=== PATIENT | female | born 1960 | race Caucasian/White ===

== ENCOUNTER 2018-09-21 09:05 | Emergency (ER) | payer OTHER ==
[2018-09-21 10:12] LABS: ANION GAP 16.1
--- NOTE | 2018-09-21 10:23 | CT ---
Clinical history: 58-year-old female emergency department with right facial drooping and "swelling". No known trauma. Nonsmoker. Scan technique: Volume acquisition of data emergency unenhanced CT scan of the head and brain obtained while the patient was lying supine on the Siemens multi slice scanner [place], [place]. All data archived in the PACS system for storage, reformatting axial/sagittal/coronal planes and study. Interpretation: 1. Symmetric pittman-white matter pattern and underlying mirror-image normal ventricular system. No hydrocephalus. 2. No supratentorial or posterior fossa mass lesion. 3. No focal area of ischemic infarct or signs of encephalomalacia. 4. No sign of acute intracerebral/intraventricular/subarachnoid bleed. 5. Uniformly thick bony calvarium. No pathologic skeletal lesion, skull fracture, underlying brain contusion and no evidence of extracerebral/intracranial epidural or subdural hematoma. 6. Symmetric clear pneumatization of the paranasal and mastoid sinuses. Conclusion: Negative emergency unenhanced CT scan head.
--- NOTE | 2018-09-21 11:13 | EDM.PDOC ---
ED HPI GENERAL MEDICAL PROBLEM - General Chief Complaint: Skin Complaint Stated Complaint: FACE SWLLEN,FACE IS DROPPED Time Seen by Provider: 09/21/18 09:20 Source of Information: Reports: Patient, RN, RN Notes Reviewed History Limitations: Reports: No Limitations - History of Present Illness INITIAL COMMENTS - FREE TEXT/NARRATIVE: Patient presents to ER with complaint of swelling to the right cheek. States she noticed it when she awoke this morning at 0630. States she started new medication-amitriptyline on Friday. No weakness. No speech or visual disturbance. States she feels "wobbly". Denies headache. Denies fever, chills, nausea, vomiting, diarrhea, chest pain, shortness of breath, swelling of the tongue, difficulty swallowing and dental problems. Onset: Today Duration: Getting Worse Location: Reports: Other (right cheek) Quality: Reports: Ache Severity: Moderate Improves with: Reports: None Worsens with: Reports: None Associated Symptoms: Reports: No Other Symptoms - Related Data Allergies Allergy/AdvReac Type Severity Reaction Status Date / Time morphine Allergy Itching Verified 09/21/18 09:24 Home Meds: Home Meds Amitriptyline [Elavil] 10 mg PO BEDTIME 09/21/18 [History] ClonazePAM [KlonoPIN] 0.5 mg PO ASDIRECTED PRN 09/21/18 [History] Zolpidem [Ambien] 10 mg PO BEDTIME 09/21/18 [History] buPROPion [Wellbutrin] 100 mg PO BID 09/21/18 [History] Past Medical History HEENT History: Reports: Impaired Vision Other HEENT History: wears glasses Cardiovascular History: Reports: None Respiratory History: Reports: None Genitourinary History: Reports: None 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 Other LUMBER CHAIN OFFBEARER History: oviarin cysts Musculoskeletal History: Reports: Fibromyalgia Neurological History: Reports: None Psychiatric History: Reports: Anxiety, Depression Endocrine/Metabolic History: Reports: None Hematologic History: Reports: None Immunologic History: Reports: None Oncologic (Cancer) History: Reports: None Dermatologic History: Reports: None - Infectious Disease History Infectious Disease History: Reports: Measles, Mumps - Past Surgical History Head Surgeries/Procedures: Reports: None GI Surgical History: Reports: Cholecystectomy Female Surgical History: Reports: Hysterectomy Other Female Surgeries/Procedures: breast augmentation Social & Family History - Tobacco Use Smoking Status *Q: Former Smoker Years of Tobacco use: 25 Packs/Tins Daily: 1 Used Tobacco, but Quit: Yes Month/Year Tobacco Last Used: may Second Hand Smoke Exposure: No - Caffeine Use Caffeine Use: Reports: Soda, Tea - Recreational Drug Use Recreational Drug Use: No ED ROS GENERAL - Review of Systems Review Of Systems: ROS reveals no pertinent complaints other than HPI. ED EXAM, SKIN/RASH Exam: See Below Exam Limited By: No Limitations General Appearance: Mild Distress Eye Exam: Bilateral Eye: EOMI, Normal Inspection, PERRL Ears: Normal External Exam, Normal Canal, Hearing Grossly Normal, Normal TMs Nose: Normal Inspection, Normal Mucosa, No Blood Throat/Mouth: Normal Inspection, Normal Lips, Normal Teeth, Normal Gums, Normal Oropharynx, Normal Voice, No Airway Compromise Head: Facial Swelling (sided) Neck: Normal Inspection, Supple, Non-Tender, Full Range of Motion Respiratory/Chest: No Respiratory Distress, Lungs Clear, Normal Breath Sounds, No Accessory Muscle Use, Chest Non-Tender Cardiovascular: Normal Peripheral Pulses, Regular Rate, Rhythm, No Edema, No Gallop, No JVD, No Murmur, No Rub Back Exam: Normal Inspection, Full Range of Motion, NT Extremities: Normal Inspection, Normal Range of Motion, Non-Tender, No Pedal Edema, Normal Capillary Refill Neurological: Alert, Oriented, CN II-XII Intact, Normal Cognition, Normal Gait, Normal Reflexes, No Motor/Sensory Deficits Psychiatric: Anxious Skin: Other (swelling right cheek, lower jaw warm, minimal erythema. ) Lymphatic: No Adenopathy Course - Vital Signs Last Recorded V/S: Last Vital Signs Temp 97.4 F 09/21/18 09:17 Pulse 85 09/21/18 09:17 Resp 16 09/21/18 09:17 BP 132/84 09/21/18 09:33 Pulse Ox 98 09/21/18 09:17 - Orders/Labs/Meds Labs: Laboratory Tests 09/21/18 09/21/18 09/21/18 Range/Units 09:44 09:44 09:44 WBC 10.2 H (5.0-10.0) 10^3/uL RBC 4.71 (4.2-5.4) 10^6/uL Hgb 13.8 (12.0-16.0) g/dL Hct 40.5 (37.0-47.0) % MCV 86.0 (80-100) fL MCH 29.3 (27.0-34.0) pg MCHC 34.1 (33.0-35.0) g/dL Plt Count 347 (150-450) 10^3/uL Neut % (Auto) 77.3 H (42.2-75.2) % Lymph % (Auto) 17.0 L (20.5-50.1) % [place] % (Auto) 4.6 (2-8) % Eos % (Auto) 0.9 L (1.0-3.0) % Baso % (Auto) 0.2 (0.0-1.0) % ESR 16 (0-20) mm/hr Sodium 135 (135-145) mmol/L Potassium 4.1 (3.6-5.0) mmol/L Chloride 101 (101-111) mmol/L Carbon Dioxide 22.0 (21.0-31.0) mmol/L Anion Gap 16.1 BUN 11 (7-18) mg/dL Creatinine 1.0 (0.6-1.3) mg/dL Est Cr Clr Drug Dosing 55.85 mL/min Estimated GFR (MDRD) 57 BUN/Creatinine Ratio 11.00 Glucose 98 (74-105) mg/dL Calcium 8.8 (8.4-10.2) mg/dl Total Bilirubin 1.0 (0.2-1.0) mg/dL AST 26 (10-42) IU/L ALT 18 (10-60) IU/L Alkaline Phosphatase 77 (42-121) IU/L C-Reactive Protein (0.0-1.3) mg/dL Total Protein 7.8 (6.7-8.2) g/dl Albumin 4.1 (3.2-5.5) g/dl Globulin 3.7 Albumin/Globulin Ratio 1.11 09/21/18 Range/Units 09:44 WBC (5.0-10.0) 10^3/uL RBC (4.2-5.4) 10^6/uL Hgb (12.0-16.0) g/dL Hct (37.0-47.0) % MCV (80-100) fL MCH (27.0-34.0) pg MCHC (33.0-35.0) g/dL Plt Count (150-450) 10^3/uL Neut % (Auto) (42.2-75.2) % Lymph % (Auto) (20.5-50.1) % [place] % (Auto) (2-8) % Eos % (Auto) (1.0-3.0) % Baso % (Auto) (0.0-1.0) % ESR (0-20) mm/hr Sodium (135-145) mmol/L Potassium (3.6-5.0) mmol/L Chloride (101-111) mmol/L Carbon Dioxide (21.0-31.0) mmol/L Anion Gap BUN (7-18) mg/dL Creatinine (0.6-1.3) mg/dL Est Cr Clr Drug Dosing mL/min Estimated GFR (MDRD) BUN/Creatinine Ratio Glucose (74-105) mg/dL Calcium (8.4-10.2) mg/dl Total Bilirubin (0.2-1.0) mg/dL AST (10-42) IU/L ALT (10-60) IU/L Alkaline Phosphatase (42-121) IU/L C-Reactive Protein 2.6 H (0.0-1.3) mg/dL Total Protein (6.7-8.2) g/dl Albumin (3.2-5.5) g/dl Globulin Albumin/Globulin Ratio - Radiology Interpretation Free Text/Narrative:: Head CT: No acute findings See rad report - Re-Assessments/Exams Free Text/Narrative Re-Assessment/Exam: 09/21/18 16:07 Denies dental problems. Admits to some tenderness to right lower jaw. States she has had C-diff in the past and does not really want antibiotics. She was instructed to call the ER if she has further problems and an antibiotic will be prescribed. 09/22/18 08:39 NIH score 0 Departure - Departure Time of Disposition: 11:11 Disposition: Home, Self-Care 01 Condition: Fair Clinical Impression: Facial swelling - Discharge Information *PRESCRIPTION DRUG MONITORING PROGRAM REVIEWED*: No *COPY OF PRESCRIPTION DRUG MONITORING REPORT IN PATIENT DESIREE: No Instructions: Julien Palsy, Adult, Dental Abscess, [id number], Drug Allergy, Lene-yl-Avis Referrals: Stephen Lobo NP [Primary Care Provider] - Forms: ED Department Discharge Additional Instructions: Follow up with your primary care facility Return to the ER with any worsening of symptoms RX: PRednisone
== END 2018-09-21 11:34 | disposition home or self-care (01) ==
LOC: DL.ED 09:05
DX: R22.0 Localized swelling, mass and lump, head (principal); F41.9 Anxiety disorder, unspecified; F32.9 Major depressive disorder, single episode, unspecified; Z87.891 Personal history of nicotine dependence; Z79.899 Other long term (current) drug therapy; Z88.5 Allergy status to narcotic agent
CPT/HCPCS: 36415; 70450; 80053; 85025; 85651; 86140; 99284-25

== ENCOUNTER 2018-10-18 16:13 | Emergency (ER) | payer OTHER ==
[2018-10-18] MEDS ORDERED: Ketorolac 30 MG/ML SDV IM ONE (17:00)
[2018-10-18 17:43] LABS: ANION GAP 13.8
[2018-10-18] MEDS ORDERED: predniSONE 20 MG Tab PO ONE (17:55)
--- NOTE | 2018-10-18 18:15 | EDM.PDOC ---
Scribed by lAma Romo 10/18/18 [id number] for Cary Ospina NP ED HPI GENERAL MEDICAL PROBLEM - General Chief Complaint: Neurological Problem Time Seen by Provider: 10/18/18 16:45 Source of Information: Reports: Patient, RN, RN Notes Reviewed History Limitations: Reports: No Limitations - History of Present Illness INITIAL COMMENTS - FREE TEXT/NARRATIVE: Patient presents to ER with complaint of right facial swelling and drooping that began last night. Similar episode approximately 6 weeks ago. This resolved with steroids and rest after 3 days. States history of RA but "juiced and rid her of RA". She has a history of fibromyalgia. She has tenderness to right rastafari, ache to right neck, right shoulder, and back (states it feels like a fare up of fibromyalgia). No blurred vision, headache, fever or chills. Onset Date: 10/17/18 Duration: Getting Worse Location: Reports: Generalized Quality: Reports: Ache Severity: Mild Improves with: Reports: None Worsens with: Reports: None Associated Symptoms: Reports: No Other Symptoms Back Pain Score (Numeric/FACES): 6 - Related Data Allergies Allergy/AdvReac Type Severity Reaction Status Date / Time morphine Allergy Itching Verified 10/18/18 16:44 Home Meds: Home Meds Amitriptyline [Elavil] 10 mg PO BEDTIME 09/21/18 [History] ClonazePAM [KlonoPIN] 0.5 mg PO ASDIRECTED PRN 09/21/18 [History] Zolpidem [Ambien] 10 mg PO BEDTIME 09/21/18 [History] buPROPion [Wellbutrin] 100 mg PO BID 09/21/18 [History] Past Medical History HEENT History: Reports: Impaired Vision Other HEENT History: wears glasses Cardiovascular History: Reports: None Respiratory History: Reports: None Genitourinary History: Reports: None 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 Other SOLAR INSTALLATION MANAGER History: oviarin cysts Musculoskeletal History: Reports: Fibromyalgia Neurological History: Reports: None Psychiatric History: Reports: Anxiety, Depression Endocrine/Metabolic History: Reports: None Hematologic History: Reports: None Immunologic History: Reports: None Oncologic (Cancer) History: Reports: None Dermatologic History: Reports: None - Infectious Disease History Infectious Disease History: Reports: Measles, Mumps - Past Surgical History Head Surgeries/Procedures: Reports: None GI Surgical History: Reports: Cholecystectomy Female Surgical History: Reports: Hysterectomy, Other (See Below) Other Female Surgeries/Procedures: breast augmentation, ovarian cyst removal. Social & Family History - Family History Family Medical History: Noncontributory - Tobacco Use Smoking Status *Q: Never Smoker Second Hand Smoke Exposure: No - Caffeine Use Caffeine Use: Reports: Soda - Recreational Drug Use Recreational Drug Use: No ED ROS GENERAL - Review of Systems Review Of Systems: ROS reveals no pertinent complaints other than HPI. ED EXAM, NEURO - Physical Exam Exam: See Below Exam Limited By: No Limitations General Appearance: Mild Distress Eye Exam: Bilateral Eye: EOMI, Normal Inspection, PERRL Ears: Normal External Exam, Normal Canal, Hearing Grossly Normal, Normal TMs Nose: Normal Inspection, Normal Mucosa, No Blood Head Exam: Facial Swelling (right. Right mandible tenderness and right rastafari) Neck: Tender Lateral Respiratory/Chest: No Respiratory Distress, Lungs Clear, Normal Breath Sounds, No Accessory Muscle Use, Chest Non-Tender Cardiovascular: Normal Peripheral Pulses, Regular Rate, Rhythm, No Edema, No Gallop, No JVD, No Murmur, No Rub GI/Abdominal: Normal Bowel Sounds, Soft, Non-Tender, No Organomegaly, No Distention, No Abnormal Bruit, No Mass (Female) Exam: Deferred Rectal (Female) Exam: Deferred Neurological: Alert, Normal Mood/Affect, Normal Dorsiflexion, CN II-XII Intact, Normal Plantar Flexion, Normal Gait, Normal Reflexes, No Motor/Sensory Deficits , Oriented x 3 Back Exam: Normal Inspection, Full Range of Motion, NT Extremities: Normal Inspection, Normal Range of Motion, Non-Tender, No Pedal Edema, Normal Capillary Refill Psychiatric: Normal Affect, Normal Mood Skin Exam: Warm, Dry, Intact, Normal Color, No Rash Course - Vital Signs Last Recorded V/S: Last Vital Signs Temp 98.1 F 10/18/18 16:44 Pulse 75 10/18/18 16:44 Resp 16 10/18/18 16:44 BP 134/82 10/18/18 16:44 Pulse Ox 96 10/18/18 16:44 - Orders/Labs/Meds Orders: Active Orders 24 hr Category Date Time Status CBC WITH AUTO DIFF [HEME] Stat Lab 10/18/18 17:10 Results SEDIMENTATION RATE MANUAL [HEME] Stat Lab 10/18/18 17:10 Results predniSONE Med 10/18/18 17:55 Once 40 mg PO ONETIME ONE Medication Orders Prednisone (Prednisone) 40 mg PO ONETIME ONE Stop: 10/18/18 17:56 Labs: Laboratory Tests 10/18/18 10/18/18 10/18/18 Range/Units 17:10 17:10 17:10 WBC 6.3 (5.0-10.0) 10^3/uL RBC 4.32 (4.2-5.4) 10^6/uL Hgb 12.7 (12.0-16.0) g/dL Hct 37.6 (37.0-47.0) % MCV 87.0 (80-100) fL MCH 29.4 (27.0-34.0) pg MCHC 33.8 (33.0-35.0) g/dL Plt Count 347 (150-450) 10^3/uL Neut % (Auto) 56.8 (42.2-75.2) % Lymph % (Auto) 31.7 (20.5-50.1) % [place] % (Auto) 7.5 (2-8) % Eos % (Auto) 3.5 H (1.0-3.0) % Baso % (Auto) 0.5 (0.0-1.0) % Sodium 139 (135-145) mmol/L Potassium 3.8 (3.6-5.0) mmol/L Chloride 106 (101-111) mmol/L Carbon Dioxide 23.0 (21.0-31.0) mmol/L Anion Gap 13.8 BUN 14 (7-18) mg/dL Creatinine 1.0 (0.6-1.3) mg/dL Est Cr Clr Drug Dosing 55.85 mL/min Estimated GFR (MDRD) 57 BUN/Creatinine Ratio 14.00 Glucose 92 (74-105) mg/dL Calcium 8.6 (8.4-10.2) mg/dl Total Bilirubin 0.7 (0.2-1.0) mg/dL AST 19 (10-42) IU/L ALT 15 (10-60) IU/L Alkaline Phosphatase 75 (42-121) IU/L C-Reactive Protein 1.4 H (0.0-1.3) mg/dL Total Protein 7.0 (6.7-8.2) g/dl Albumin 3.7 (3.2-5.5) g/dl Globulin 3.3 Albumin/Globulin Ratio 1.12 Meds: Medications Generic Name Dose Route Start Last Admin Trade Name Freq PRN Reason Stop Dose Admin Prednisone 40 mg 10/18/18 17:55 Prednisone PO 10/18/18 17:56 ONETIME ONE Discontinued Medications Generic Name Dose Route Start Last Admin Trade Name Freq PRN Reason Stop Dose Admin Ketorolac Tromethamine 30 mg 10/18/18 17:00 10/18/18 17:15 Toradol IM 10/18/18 17:01 30 mg ONETIME ONE Administration Departure - Departure Time of Disposition: 17:58 Disposition: Home, Self-Care 01 Condition: Fair Clinical Impression: Swelling of right side of face - Discharge Information *PRESCRIPTION DRUG MONITORING PROGRAM REVIEWED*: No *COPY OF PRESCRIPTION DRUG MONITORING REPORT IN PATIENT DESIREE: No Forms: ED Department Discharge Additional Instructions: RX: Prednisone Make an appointment tomorrow to see Stephen Lobo for further workup Return to the ER with any worsening of symptoms - My Orders Last 24 Hours: My Active Orders 10/18/18 17:10 CBC WITH AUTO DIFF [HEME] Stat SEDIMENTATION RATE MANUAL [HEME] Stat 10/18/18 17:55 predniSONE 40 mg PO ONETIME ONE - Assessment/Plan Last 24 Hours: My Active Orders 10/18/18 17:10 CBC WITH AUTO DIFF [HEME] Stat SEDIMENTATION RATE MANUAL [HEME] Stat 10/18/18 17:55 predniSONE 40 mg PO ONETIME ONE I have read and agree with the documentation that has been completed regarding this visit. By signing this record, I attest that the documentation was completed in my physical presence and is an accurate record of the encounter.
== END 2018-10-18 18:04 | disposition home or self-care (01) ==
LOC: DL.ED 16:13
DX: R22.0 Localized swelling, mass and lump, head (principal); F41.9 Anxiety disorder, unspecified; F32.9 Major depressive disorder, single episode, unspecified; Z88.5 Allergy status to narcotic agent; Z79.899 Other long term (current) drug therapy
CPT/HCPCS: 36415; 80053; 85025; 85651; 86140; 96372; 99283; A9270; J1885

== ENCOUNTER 2019-12-25 02:35 | Emergency (ER) | payer OTHER, BC ==
[2019-12-25] MEDS ORDERED: Ketorolac 30 MG/ML SDV IM ONE (03:00)
--- NOTE | 2019-12-25 03:05 | EDM.PDOC ---
ED HPI GENERAL MEDICAL PROBLEM - General Chief Complaint: Back Pain or Injury Stated Complaint: NECK AND BACK SIDE LEFT SIDE Time Seen by Provider: 12/25/19 03:01 Source of Information: Reports: Patient History Limitations: Reports: No Limitations - History of Present Illness INITIAL COMMENTS - FREE TEXT/NARRATIVE: 3 days h/o pain left shoulder blade and upper shoulder. PMD gave flexeril but not effective. heat does help but not lasting. worse tonight hard to sleep. denies trauma to area. Left Middle Back Pain Score (Numeric/FACES): 8 - Related Data Allergies Allergy/AdvReac Type Severity Reaction Status Date / Time morphine Allergy Itching Verified 12/25/19 02:57 Home Meds: Home Meds Amitriptyline [Elavil] 10 mg PO BEDTIME 09/21/18 [History] ClonazePAM [KlonoPIN] 0.5 mg PO ASDIRECTED PRN 09/21/18 [History] Zolpidem [Ambien] 10 mg PO BEDTIME 09/21/18 [History] buPROPion [Wellbutrin] 100 mg PO BID 09/21/18 [History] Past Medical History HEENT History: Reports: Impaired Vision Other HEENT History: wears glasses Cardiovascular History: Reports: None Respiratory History: Reports: None Genitourinary History: Reports: None 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 Other JOINT MACHINE OPERATOR History: oviarin cysts Musculoskeletal History: Reports: Back Pain, Chronic, Fibromyalgia Neurological History: Reports: None Psychiatric History: Reports: Anxiety, Depression Endocrine/Metabolic History: Reports: None Hematologic History: Reports: None Immunologic History: Reports: None Oncologic (Cancer) History: Reports: None Dermatologic History: Reports: None - Infectious Disease History Infectious Disease History: Reports: Measles, Mumps - Past Surgical History Head Surgeries/Procedures: Reports: None GI Surgical History: Reports: Cholecystectomy Female Surgical History: Reports: Hysterectomy, Other (See Below) Other Female Surgeries/Procedures: breast augmentation, ovarian cyst removal. Social & Family History - Family History Family Medical History: Noncontributory - Tobacco Use Smoking Status *Q: Never Smoker Second Hand Smoke Exposure: No - Caffeine Use Caffeine Use: Reports: None - Recreational Drug Use Recreational Drug Use: No ED ROS GENERAL - Review of Systems Review Of Systems: Comprehensive ROS is negative, except as noted in HPI. ED EXAM, UPPER BACK/NECK PAIN - Physical Exam Exam: See Below Exam Limited By: No Limitations General Appearance: Alert, WD/WN, Mild Distress, Moderate Distress, Other (discomfort) Ears Exam: Hearing Grossly Normal Throat/Mouth Exam: Normal Voice, No Airway Compromise Head Exam: Atraumatic Neck Exam: Full Range of Motion, Normal Alignment, Tenderness, Other (left SCM region with radiculitis) Nexus Criteria: No: Posterior, Midline Cervical Tenderness, Evidence of Intoxication, Altered Level of Consciousness, Focal Neurological Deficit, Painful Distraction Injuries Cardiovascular/Respiratory: Regular Rate, Rhythm, No Respiratory Distress GI/Abdominal: Soft, Non-Tender Back Exam: Muscle Spasm, Other (left deltoid, trapezius, rhomboid, serratus areas) Extremities: Normal Inspection, Normal Range of Motion Neurologic: No Motor/Sensory Deficits, Alert, Oriented x 3 Psychiatric: Tearful Skin Exam: Normal Color, Warm/Dry Lymphatic: No Adenopathy Course - Vital Signs Last Recorded V/S: Last Vital Signs Temp 35.8 C L 12/25/19 02:47 Pulse 88 12/25/19 02:47 Resp 18 12/25/19 02:47 BP 127/83 12/25/19 02:47 Pulse Ox 98 12/25/19 02:47 - Orders/Labs/Meds Meds: Medications Discontinued Medications Generic Name Dose Route Start Last Admin Trade Name Daniela PRN Reason Stop Dose Admin Ketorolac Tromethamine 30 mg 12/25/19 03:00 12/25/19 03:07 Toradol IM 12/25/19 03:01 30 mg ONETIME ONE Administration - Re-Assessments/Exams Free Text/Narrative Re-Assessment/Exam: 12/25/19 03:57 re-exam; s/p toradol = much better now. Departure - Departure Time of Disposition: 03:58 Disposition: Home, Self-Care 01 Condition: Good Clinical Impression: Trapezius muscle strain Qualifiers: Encounter type: initial encounter Laterality: left Qualified Code(s): S46.812A - Strain of other muscles, fascia and tendons at shoulder and upper arm level, left arm, initial encounter - Discharge Information Instructions: Muscle Strain, [id number] Forms: ED Department Discharge Additional Instructions: 1) use heat to sore area 2) avoid excessive use left shoulder 3) follow up at clinic rx given; toradol 10mg bid prn x 12 Sepsis Event Note (ED) - Evaluation Sepsis Screening Result: No Definite Risk - Focused Exam Vital Signs: Vital Signs Temp Pulse Resp BP Pulse Ox 12/25/19 02:47 35.8 C L 88 18 127/83 98
== END 2019-12-25 04:06 | disposition home or self-care (01) ==
LOC: DL.ED 02:35
DX: S46.812A Strain of other muscles, fascia and tendons at shoulder and upper arm level, left arm, initial encounter (principal); F41.9 Anxiety disorder, unspecified; F32.9 Major depressive disorder, single episode, unspecified; Z90.49 Acquired absence of other specified parts of digestive tract; Z90.710 Acquired absence of both cervix and uterus; Z88.5 Allergy status to narcotic agent; Z79.899 Other long term (current) drug therapy; X58.XXXA Exposure to other specified factors, initial encounter
CPT/HCPCS: 96372; 99283; J1885

== ENCOUNTER 2019-12-26 15:49 | Emergency (ER) | payer OTHER, BC ==
[2019-12-26] MEDS ORDERED: methylPREDNISolone Sodium Succinate 125 MG/2 ML SDV IM ONE (16:47)
[2019-12-26] MEDS ORDERED: HYDROmorphone 1 MG/ML Syringe IM ONE (16:47)
--- NOTE | 2019-12-26 16:52 | EDM.PDOC ---
Scribed by Alma Romo 12/26/19 [id number] for Rose Marie Calvert MD ED HPI GENERAL MEDICAL PROBLEM - General Chief Complaint: Upper Extremity Injury/Pain Stated Complaint: MUSCLES IN BACK TO THE FINGER TIPSS ARE TINGLING.. Time Seen by Provider: 12/26/19 16:23 Source of Information: Reports: Patient, RN, RN Notes Reviewed History Limitations: Reports: No Limitations - History of Present Illness INITIAL COMMENTS - FREE TEXT/NARRATIVE: Patient presents to ED for left shoulder pain. It started approximately 4 days ago. Since it has started she has been to her chiropractor, who has scheduled for physical therapy this week. She has talked to her primary care physician, who gave her Flexeril and she has been to the emergency department where she was given Toradol. She notes none of these have helped. She noted that her scanner at work is broken so she has to use her left hand to fold papers, which she thinks triggered this pain. She has some tingling in her fingers, but no numbness. She notes decreased range of motion secondary to pain. Onset: Gradual Duration: Constant Location: Reports: Back Quality: Reports: Ache Severity: Moderate Improves with: Reports: None Worsens with: Reports: None Associated Symptoms: Reports: No Other Symptoms Generalized Pain Score (Numeric/FACES): 9 - Related Data Allergies Allergy/AdvReac Type Severity Reaction Status Date / Time carisoprodol [From Soma] Allergy Burning Verified 12/26/19 16:10 morphine Allergy Itching Verified 12/25/19 02:57 Home Meds: Home Meds ClonazePAM [KlonoPIN] 0.5 mg PO ASDIRECTED PRN 09/21/18 [History] Zolpidem [Ambien] 10 mg PO BEDTIME 09/21/18 [History] buPROPion [Wellbutrin] 100 mg PO DAILY 09/21/18 [History] Diclofenac Sodium 150 mg PO DAILY 12/26/19 [History] Past Medical History HEENT History: Reports: Impaired Vision Other HEENT History: wears glasses Cardiovascular History: Reports: None Respiratory History: Reports: None Genitourinary History: Reports: None 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 History: Reports: Polycystic Ovaries Other HEALTH WORKER History: oviarin cysts Musculoskeletal History: Reports: Back Pain, Chronic, Fibromyalgia Neurological History: Reports: None Psychiatric History: Reports: Anxiety, Depression Endocrine/Metabolic History: Reports: None Hematologic History: Reports: None Immunologic History: Reports: None Oncologic (Cancer) History: Reports: None Dermatologic History: Reports: None - Infectious Disease History Infectious Disease History: Reports: Mumps - Past Surgical History Head Surgeries/Procedures: Reports: None GI Surgical History: Reports: Cholecystectomy Female Surgical History: Reports: Hysterectomy, Other (See Below) Other Female Surgeries/Procedures: breast augmentation, ovarian cyst removal. Social & Family History - Family History Family Medical History: Noncontributory - Tobacco Use Smoking Status *Q: Never Smoker Second Hand Smoke Exposure: No - Caffeine Use Caffeine Use: Reports: None - Recreational Drug Use Recreational Drug Use: No Review of Systems - Review of Systems Review Of Systems: Comprehensive ROS is negative, except as noted in HPI. ED EXAM, GENERAL - Physical Exam Exam: See Below Exam Limited By: No Limitations General Appearance: Alert, WD/WN, No Apparent Distress Eye Exam: Bilateral Eye: Normal Inspection Ears: Normal External Exam Nose: Normal Inspection Throat/Mouth: Normal Inspection Head: Atraumatic, Normocephalic Neck: Normal Inspection Respiratory/Chest: No Respiratory Distress Cardiovascular: Regular Rate, Rhythm GI/Abdominal: Normal Bowel Sounds (Female) Exam: Deferred Rectal (Female) Exam: Deferred Back Exam: Other (left upper back mid scapula with tenderness to palpationl along the scapula. Moderate muscle spasm noted. No overlying rash or increased tenderness to light palpation. Decreased range of motion secondary to pain. No gross deformity. Neurovascularly intact. ) Neurological: Alert, Oriented, CN II-XII Intact, Normal Cognition, Normal Gait, Normal Reflexes, No Motor/Sensory Deficits Psychiatric: Normal Affect, Normal Mood Skin Exam: Warm, Dry, Intact Course - Vital Signs Last Recorded V/S: Last Vital Signs Temp 98.0 F 12/26/19 16:13 Pulse 78 12/26/19 16:13 Resp 16 12/26/19 16:13 BP 110/63 12/26/19 16:13 Pulse Ox 98 12/26/19 16:13 - Orders/Labs/Meds Meds: Medications Discontinued Medications Generic Name Dose Route Start Last Admin Trade Name Freq PRN Reason Stop Dose Admin Hydromorphone HCl 1 mg 12/26/19 16:47 Dilaudid IM 12/26/19 16:48 ONETIME ONE Methylprednisolone Sodium Succinate 125 mg 12/26/19 16:47 Solu-Medrol IM 12/26/19 16:48 ONETIME ONE - Re-Assessments/Exams Free Text/Narrative Re-Assessment/Exam: 12/26/19 16:42 Patient will receive IM pain medications and steroids. Departure - Departure Time of Disposition: 16:51 Disposition: Home, Self-Care 01 Condition: Good Clinical Impression: Muscle spasm of back - Discharge Information *PRESCRIPTION DRUG MONITORING PROGRAM REVIEWED*: Not Applicable *COPY OF PRESCRIPTION DRUG MONITORING REPORT IN PATIENT DESIREE: Not Applicable Instructions: Muscle Cramps and Spasms, [id number] Forms: ED Department Discharge Additional Instructions: RX: Prednisone 20mg daily for 5 days. She is not to take her Diclofenac while taking the prescription. She is stop the Toradol all together. Sepsis Event Note (ED) - Evaluation Sepsis Screening Result: No Definite Risk - Focused Exam Vital Signs: Vital Signs Temp Pulse Resp BP Pulse Ox 12/26/19 16:13 98.0 F 78 16 110/63 98 I have read and agree with the documentation that has been completed regarding this visit. By signing this record, I attest that the documentation was completed in my physical presence and is an accurate record of the encounter.
== END 2019-12-26 17:22 | disposition home or self-care (01) ==
LOC: DL.ED 15:49
DX: M62.830 Muscle spasm of back (principal); F32.9 Major depressive disorder, single episode, unspecified; Z88.5 Allergy status to narcotic agent; Z88.8 Allergy status to other drugs, medicaments and biological substances; Z79.899 Other long term (current) drug therapy
CPT/HCPCS: 96372; 99283; J1170; J2930

== ENCOUNTER 2020-12-11 15:55 | Emergency (ER) | payer BC, MEDICAID, SELFPAY ==
[2020-12-11] MEDS ORDERED: hydrOXYzine HCl 25 MG Tab PO ONE (17:18)
[2020-12-11] MEDS ORDERED: predniSONE 20 MG Tab PO ONE (17:18)
[2020-12-11] MEDS ORDERED: Lidocaine 5% Oint 35.44 GM Tube TOP ONE (17:19)
--- NOTE | 2020-12-11 17:29 | EDM.PDOC ---
Scribed by Alma Romo 12/11/20 3147 for Enrique Caceres MD ED HPI GENERAL MEDICAL PROBLEM - General Chief Complaint: General Stated Complaint: REACTION TO MISQUETO BITES Time Seen by Provider: 12/11/20 17:00 Source of Information: Reports: Patient History Limitations: Reports: No Limitations - History of Present Illness INITIAL COMMENTS - FREE TEXT/NARRATIVE: 60 y/o F c/o itchiness over her arms and legs for the last three days. Pt states she developed what appears bug bites on her arms and legs over the last three days however, she does not know when or how the bites occurred. Pt states the bites have become unbearable and she would like something to relieve her symptoms. She has tried cortisone and other over the counter remedies with no success. Hx of anxiety, insomnia. Denies fever, cough, chills, sob, cp, abd pn, recent trauma. Onset: Gradual Duration: Day(s): Location: Reports: Generalized Quality: Reports: Other (itching ) Improves with: Reports: None Worsens with: Reports: None - Related Data Allergies Allergy/AdvReac Type Severity Reaction Status Date / Time carisoprodol [From Soma] Allergy Burning Verified 12/11/20 16:56 morphine Allergy Itching Verified 12/11/20 16:56 Home Meds: Home Meds ClonazePAM [KlonoPIN] 0.5 mg PO ASDIRECTED PRN 09/21/18 [History] Zolpidem [Ambien] 10 mg PO BEDTIME 09/21/18 [History] buPROPion [Wellbutrin] 100 mg PO DAILY 09/21/18 [History] Diclofenac Sodium 150 mg PO DAILY 12/26/19 [History] Past Medical History HEENT History: Reports: Impaired Vision Other HEENT History: wears glasses Cardiovascular History: Reports: None Respiratory History: Reports: None Genitourinary History: Reports: None 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 REPAIR 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 History: oviarin cysts Musculoskeletal History: Reports: Back Pain, Chronic, Fibromyalgia Neurological History: Reports: None Psychiatric History: Reports: Anxiety, Depression Endocrine/Metabolic History: Reports: None Hematologic History: Reports: None Immunologic History: Reports: None Oncologic (Cancer) History: Reports: None Dermatologic History: Reports: None - Infectious Disease History Infectious Disease History: Reports: Mumps - Past Surgical History Head Surgeries/Procedures: Reports: None GI Surgical History: Reports: Cholecystectomy Female Surgical History: Reports: Hysterectomy, Other (See Below) Other Female Surgeries/Procedures: breast augmentation, ovarian cyst removal. Social & Family History - Family History Family Medical History: No Pertinent Family History - Tobacco Use Tobacco Use Status *Q: Never Tobacco User Second Hand Smoke Exposure: No - Caffeine Use Caffeine Use: Reports: Coffee - Recreational Drug Use Recreational Drug Use: No ED ROS GENERAL - Review of Systems Review Of Systems: Comprehensive ROS is negative, except as noted in HPI. ED EXAM, GENERAL - Physical Exam Exam: See Below Exam Limited By: No Limitations General Appearance: Alert, WD/WN, No Apparent Distress Eye Exam: Bilateral Eye: PERRL Ears: Normal External Exam, Normal Canal, Hearing Grossly Normal, Normal TMs Nose: Normal Inspection, Normal Mucosa, No Blood Throat/Mouth: Normal Inspection, Normal Lips, Normal Teeth, Normal Gums, Normal Oropharynx, Normal Voice, No Airway Compromise Head: Atraumatic, Normocephalic Neck: Normal Inspection, Supple, Non-Tender, Full Range of Motion Respiratory/Chest: No Respiratory Distress, Lungs Clear, Normal Breath Sounds, No Accessory Muscle Use, Chest Non-Tender Cardiovascular: Normal Peripheral Pulses, Regular Rate, Rhythm, No Edema, No Gallop, No JVD, No Murmur, No Rub GI/Abdominal: Soft, Non-Tender (Female) Exam: Deferred Rectal (Female) Exam: Deferred Back Exam: Normal Inspection, Full Range of Motion, NT Extremities: Other (diffuse 1cm raised excoriations on upper and lower extremities there appears to be no lesions that are not excoriated making diagnosis of the primary lesion difficult.) Neurological: Alert, Oriented, CN II-XII Intact, Normal Cognition, Normal Gait, Normal Reflexes, No Motor/Sensory Deficits Psychiatric: Normal Affect, Normal Mood Skin Exam: Warm, Dry, Intact, Normal Color, No Rash Course - Vital Signs Last Recorded V/S: Last Vital Signs Temp 96.8 F L 12/11/20 16:59 Pulse 79 12/11/20 16:59 Resp 16 12/11/20 16:59 BP 138/72 12/11/20 16:59 Pulse Ox 98 12/11/20 16:59 - Orders/Labs/Meds Meds: Medications Discontinued Medications Generic Name Dose Route Start Last Admin Trade Name Freq PRN Reason Stop Dose Admin Hydroxyzine HCl 50 mg 12/11/20 17:18 Hydroxyzine Hcl 25 Mg Tab PO 12/11/20 17:19 ONETIME ONE Lidocaine HCl 30 gm 12/11/20 17:19 Lidocaine 5% Oint 35.44 Gm Tube TOP 12/11/20 17:20 ONETIME ONE Prednisone 40 mg 12/11/20 17:18 Prednisone 20 Mg Tab PO 12/11/20 17:19 ONETIME ONE Departure - Departure Time of Disposition: 17:27 Disposition: Home, Self-Care 01 Condition: Good Clinical Impression: Insect bite, multiple - Discharge Information *PRESCRIPTION DRUG MONITORING PROGRAM REVIEWED*: Not Applicable *COPY OF PRESCRIPTION DRUG MONITORING REPORT IN PATIENT DESIREE: Not Applicable Instructions: Insect Bite, Adult, [id number] Forms: ED Department Discharge Additional Instructions: Rx: Prednisone 20mg Rx: Hydroxyzine 25mg Lidocaine Ointment 5% Follow up in clinic if not improving in 3 days. Sepsis Event Note (ED) - Evaluation Sepsis Screening Result: No Definite Risk - Focused Exam Vital Signs: Vital Signs Temp Pulse Resp BP Pulse Ox 12/11/20 16:59 96.8 F L 79 16 138/72 98 I have read and agree with the documentation that has been completed regarding this visit. By signing this record, I attest that the documentation was completed in my physical presence and is an accurate record of the encounter.
== END 2020-12-11 17:35 | disposition home or self-care (01) ==
LOC: DL.ED 15:55
DX: S80.869A Insect bite (nonvenomous), unspecified lower leg, initial encounter (principal); S40.869A Insect bite (nonvenomous) of unspecified upper arm, initial encounter; Z88.5 Allergy status to narcotic agent; Z88.8 Allergy status to other drugs, medicaments and biological substances; W57.XXXA Bitten or stung by nonvenomous insect and other nonvenomous arthropods, initial encounter
CPT/HCPCS: 99281; A9270; J7512